=== PATIENT | female | born 1980 | race Two or more races ===

== ENCOUNTER 2022-01-01 11:33 | Emergency (ER) | payer MEDICAID ==
[~2022-01-01] VITALS: Ht 139.7 cm; Wt 56.7 kg
[2022-01-01 11:39] VITALS: BP 126/62
[2022-01-01] MEDS ORDERED: SULF1TAB48 PO (11:45)
--- NOTE | 2022-01-01 11:47 | NUR ---
PT CAME TO ER C/O DOG BITE IN R HAND TODAY. DOG WAS A HOUSE PET, NOT IN THE WILD. AAOX4, BREATHING EVEN AND UNLABORED. NO LOSS OF SENSATION IN R HAND. SLIGHT PUNCTURE WOUND, NO ACTIVE BLEEDING. SEEING PT FOR EVAL.
--- NOTE | 2022-01-01 11:51 | NUR ---
WOUND CARE BEING DONE
--- NOTE | 2022-01-01 11:59 | NUR ---
Patient discharged to home in stable condition. Written and verbal after care instructions given. Patient verbalizes understanding of instruction.
== END 2022-01-01 12:00 | disposition home or self-care (01) ==
LOC: ER 11:38
DX: S61.451A Open bite of right hand, initial encounter (principal); Z88.0 Allergy status to penicillin; W54.0XXA Bitten by dog, initial encounter; Y93.89 Activity, other specified; Y92.89 Other specified places as the place of occurrence of the external cause; Y99.8 Other external cause status

== ENCOUNTER → 2024-10-08 | Emergency (ER) | payer MEDICAID, OTHER ==
[~2024-10-08] VITALS: Ht 142.2 cm; Wt 63.5 kg
[~2024-10-08] MED LIST: CLIN300C12 PO; SULF1TAB48 PO
[2024-10-08] MEDS: TDAP [DIPH/PERTUSSIS/TET] 0.5 ML VIAL IM ONE (13:55)
[2024-10-08] MEDS: IBUPROFEN 400 MG TABLET PO ONE (13:55)
[2024-10-08 14:12] VITALS: BP 124/79; TEMP 97.9; O2SAT 97
== END | disposition home or self-care (01) ==
LOC: ER 13:00
DX: S20.171A Other superficial bite of breast, right breast, initial encounter (principal); Z88.0 Allergy status to penicillin; W54.0XXA Bitten by dog, initial encounter; Y93.89 Activity, other specified; Y92.098 Other place in other non-institutional residence as the place of occurrence of the external cause; Y99.8 Other external cause status
CPT/HCPCS: 99283; 90471; 90715; A6403